=== PATIENT | female | born 1940 | race Caucasian/White ===

== ENCOUNTER 2016-09-17 12:48 | Observation (INO) | payer MEDICARE ==
--- NOTE | ~2016-09-17 | OP ---
Record Of Operation [facility] [address] [place]. [address] NAME: LOWELL SANCHEZ : 42 STATUS : ADM IN PAT#: [id number] AGE: 76 ADM/REG DATE : 09/17/16 MR#: [id number] REPORT SERV DATE: 09/18/16 DICTATED BY: ALCON BERMUDEZ DATE: 09/17/16 REPORT STATUS : Draft TRANSCRIBED BY: MODL DATE: 09/17/16 DATE OF PROCEDURE: 09/17/2016 PREPROCEDURE DIAGNOSES: Obstructive defecation and rectocele. POSTPROCEDURE DIAGNOSES: Obstructive defecation and rectocele. PROCEDURE: Transvaginal rectocele repair (no mesh). TOPPIECE CUTTER: Hong. DESCRIPTION OF PROCEDURE: The patient was taken to the operating room, induced under general anesthesia, prepped and draped in the usual sterile fashion. Kohler catheter was placed towards anesthesia to keep it out of harm's way. An intravaginal prep had been done before prepping and draping. The weighted vaginal retractor was placed in the vagina towards the bladder to hold it out of harm's way. This exposed the posterior vaginal wall. [place] clamps were placed on the posterior fornix and then 1% lidocaine and 0.25% Sensorcaine with epinephrine was injected in the submucosa of the posterior vaginal wall. A midline incision was made from the apex of the vagina to the posterior introitus through the mucosa only. Then, vaginal flaps were created using cautery and blunt dissection with Kitt[place]. Once this was accomplished circumferentially both to the lateral sidewalls and to the apex, of note, there was an enterocele, which was dissected as well. At this point, the enterocele and rectocele were repaired together. First layer was done with [id number] 2-0 Vicryl sutures from apex to introitus and then more laterally, U-stitches were placed over the top imbricating the rectovaginal fascia over the top of the first line of sutures. At this point, an 8 glove was placed over the surgeon's right hand, dipped in [place] and Betadine paint. Digital rectal exam was performed to assess the thickness and strength of the repair. There appeared to be weakness near the introitus, so this glove was removed, passed off the table, and another suture was placed in this location to create a complete repair with no areas of weakness. The vaginal mucosa was transected bilaterally, passed off the table, sent to pathology, and then the defect was closed with a running locking 2-0 Vicryl suture. At this point, the vagina was packed with Premarin-soaked Vagpack, which was then trimmed to size. The patient was cleaned and dried followed by two 4x4s, peripad, and mesh panties. Of note, the anus was kept isolated using a green towel with asael on the perineum. These asael were removed before mesh panties were placed. She tolerated the procedure well. VERONIQUE/AISHA Alcon Bermudez M.D. / [id number] CC: Record Of Operation [address] [place]. [address] NAME: LOWELL SANCHEZ : 42 STATUS : ADM IN LOCATED WITHIN [facility]#: [id number] AGE: 76 ADM/REG DATE : 09/17/16 MR#: [id number] REPORT SERV DATE: 09/18/16 DICTATED BY: ALCON BERMUDEZ DATE: 09/17/16 REPORT STATUS : Draft TRANSCRIBED BY: AISHA DATE: 09/17/16 Yolande Story M.D. CHRISTOPHER MULLIN, MD
--- NOTE | ~2016-09-17 | HP ---
History And Physical [id number] [place]. [address] NAME: LOWELL SANCHEZ : 42 STATUS : DIS Vashti PAT#: [id number] AGE: 76 ADM/REG DATE : 09/17/16 MR#: [id number] REPORT SERV DATE: 09/19/16 DICTATED BY: ALCON BERMUDEZ DATE: 09/17/16 REPORT STATUS : Draft TRANSCRIBED BY: AISHA DATE: 09/17/16 DATE OF ADMISSION: 09/17/2016 REASON FOR ADMISSION: Transvaginal rectocele repair. PAST MEDICAL HISTORY: Asthma, obstructive defecation, rectocele, grade 3 internal hemorrhoids, breast cancer, lung cancer, and osteoporosis. PAST SURGICAL HISTORY: Breast biopsy, cataract surgery, colonoscopy, D and C, breast lumpectomy, and lung surgery. ALLERGIES: CLARITIN, ZYRTEC, AND SINGULAR. SOCIAL HISTORY: She used to smoke, is a moderate drinker, consuming three glasses of wine per week. FAMILY HISTORY: Alzheimer's, brain tumor, emphysema, and myocardial infarction. MEDICATIONS: , calcium, , latanoprost, Nasacort, vitamin D, and GoLYTELY, which was just a bowel prep. REVIEW OF SYSTEMS: As stated in HPI, otherwise, negative. PHYSICAL EXAMINATION: VITAL SIGNS: 64, 100/60, BMI 22. GENERAL: Alert, thin white female, in no acute distress. HEENT: Normocephalic, atraumatic. EOMI. PERRLA. Oropharynx is clear. NECK: Supple. No lymphadenopathy. Clear to auscultation bilaterally. HEART: Regular rate and rhythm. ABDOMEN: Soft, nontender, nondistended. EXTREMITIES: Moves all extremities well. Cranial nerves 2-12 intact. No rashes. Vaginal exam shows a large grade 3 rectocele. ASSESSMENT AND PLAN: A 76-year-old female with obstructive defecation and rectocele. PLAN: Transvaginal rectocele repair. No mesh. I have discussed risks, benefits, and alternatives. She understands and is willing to proceed. VERONIQUE/AISHA Alcon Bermudez M.D. History And Physical [address] [address] [facility] [place]. [address] NAME: LOWELL SANCHEZ : 42 STATUS : DIS Vashti PAT#: [id number] AGE: 76 ADM/REG DATE : 09/17/16 MR#: [id number] REPORT SERV DATE: 09/19/16 DICTATED BY: ALCON BERMUDEZ DATE: 09/17/16 REPORT STATUS : Draft TRANSCRIBED BY: MODL DATE: 09/17/16 / [id number] CC: Yolande Story M.D.
[~2016-09-17 12:48] MED LIST: ACET500CAP PO; ALLEGRA180 PO; ASTAXANTHIN PO; B COMPLETE; BORAGE OIL PO; CALTRA600D PO; GLUCCHONDR PO; MAXIMUM D3 PO; VITC500 PO; XALAT OPH
[2016-09-17 13:17] LABS: HEMOGLOBIN 14.9 g/dL (12.0-16.0)
[2016-09-17 17:06] LABS: HEMATOCRIT 41.3 % (36.0-48.0); HEMOGLOBIN 13.9 g/dL (12.0-16.0)
[2016-09-18 06:16] LABS: BASOPHILS 0.1 %; BASOPHILS ABSOLUTE 0.01 10/3/uL (0.0-0.16); EOSINOPHILS 0.1 %; EOSINOPHILS ABSOLUTE 0.01 10/3/uL (0.0-0.53); HEMOGLOBIN 12.1 g/dL (12.0-16.0); IMMATURE GRANULOCYTES 0.3 %; IMMATURE GRANULOCYTES ABSOLUTE 0.03 10/3/uL (0.0-0.11); LYMPHOCYTES 12.1 %; LYMPHOCYTES ABSOLUTE 1.19 10/3/uL (0.67-4.30); MEAN CORPUS HGB CONC 34.1 g/dL (32.0-36.0); MEAN CORPUSCULAR HEMOGLOB 34.2 pg (26.0-34.0); MEAN CORPUSCULAR VOLUME 100.3 fL (80-100); MEAN PLATELET VOLUME 9.6 fL (9.2-13.0); MONOCYTES ABSOLUTE 0.88 10/3/uL (0.21-1.20); NEUTROPHILS 78.4 %; NEUTROPHILS ABSOLUTE 7.68 10/3/uL (2.02-8.40); PLATELET COUNT 152 10/3/uL (150-400); RBC DISTRIBUTION WIDTH 13.3 % (12.0-16.0); RED CELL COUNT 3.54 10/6/uL (4.0-5.6); WHITE BLOOD CELLS 9.8 10/3/uL (4.5-10.5)
[2016-09-18 06:18] LABS: HEMATOCRIT 35.5 % (36.0-48.0); MANUAL DIFF NO %
[2016-09-18 06:31] LABS: BUN (BLOOD UREA NITROGEN) 9 MG/DL (6-23); CALCIUM, SERUM 7.9 MG/DL (8.5-10.4); CHLORIDE, SERUM 108 MMOL/L (96-112); CO2 (CARBON DIOXIDE) 26 MMOL/L (24-34); CREATININE 0.79 MG/DL (0.55-1.02); GFR AFRICAN AMERICAN 85 ML/MIN (>=60); GFR NON AFRICAN AMERICAN 73 ML/MIN (>=60); SODIUM, SERUM 139 MMOL/L (135-148)
[2016-09-18 06:35] LABS: GLUCOSE, SERUM 148 MG/DL (60-99)
[2016-09-18] MEDS ORDERED: DIL2TAB PO (08:27)
[2016-09-18] MEDS ORDERED: METPAKSF PO (08:28)
[2016-09-18] MEDS ORDERED: MOMUD PO (08:29)
== END 2016-09-18 14:00 | disposition home or self-care (01) ==
LOC: SDC 12:48 → 5SO 17:20
PROVIDERS: Surgery
PROC: 0JQC0ZZ Repair Pelvic Region Subcutaneous Tissue and Fascia, Open Approach (ICD-10-PCS; principal; 2016-09-17 14:30)
DX: N81.6 Rectocele (principal); J45.909 Unspecified asthma, uncomplicated; M81.0 Age-related osteoporosis without current pathological fracture; H40.9 Unspecified glaucoma; Z85.118 Personal history of other malignant neoplasm of bronchus and lung; Z85.3 Personal history of malignant neoplasm of breast; Z98.49 Cataract extraction status, unspecified eye; Z88.8 Allergy status to other drugs, medicaments and biological substances; Z88.5 Allergy status to narcotic agent
CPT/HCPCS: 80048; 85014; 85018; 85025; 88302; 93005; 96372; 96374; 96375; 96376; A9270-GY; G0378; J0690; J1885; J2270; J2405; J2710; J3010